=== PATIENT | female | born 1985 | race Caucasian/White ===

== ENCOUNTER 2024-12-29 12:43 | Outpatient (CLI) | payer BC | END 2024-12-29 12:44 | disposition home or self-care (01) | LOC: SCSMRI 12:43 | PROVIDERS: ATTEND Family Medicine | DX: S93.402A Sprain of unspecified ligament of left ankle, initial encounter (principal); M25.572 Pain in left ankle and joints of left foot; M19.072 Primary osteoarthritis, left ankle and foot; S92.212A Displaced fracture of cuboid bone of left foot, initial encounter for closed fracture; S96.812A Strain of other specified muscles and tendons at ankle and foot level, left foot, initial encounter; R93.7 Abnormal findings on diagnostic imaging of other parts of musculoskeletal system; R60.0 Localized edema ==